=== PATIENT | male | born 1985 | race Caucasian/White ===

== ENCOUNTER → 2019-05-05 | Emergency (ER) | payer SELFPAY ==
[~2019-05-05] VITALS: Ht 188 cm; Wt 88.5 kg
[~2019-05-05] MED LIST: TETANUS-DIPTH-ACEL PERTUSSIS 0.5ML SYRG IM ONE
[2019-05-05 19:09] VITALS: BP 162/95
== END | disposition home or self-care (01) ==
LOC: ER 18:49
DX: S61.012A Laceration without foreign body of left thumb without damage to nail, initial encounter (principal); W26.0XXA Contact with knife, initial encounter; Y93.89 Activity, other specified; Y99.8 Other external cause status; Y92.89 Other specified places as the place of occurrence of the external cause
CPT/HCPCS: 90471; 90715